=== PATIENT | female | born 2000 | race Caucasian/White ===

== ENCOUNTER 2021-03-29 13:56 | Emergency (ER) | payer SELFPAY ==
--- NOTE | 2021-03-29 14:37 | ER ---
Nurse's Notes [facility] Name: Anastasiia Salcedo Age: 20 yrs Sex: Female : 2000 Arrival Date: 03/29/2021 Time: 13:59 Bed 11 Private MD: Diagnosis: Acute tonsillitis, unspecified Presentation: 03/29 14:18 Chief complaint: Patient states: Two days ago pt state sore throat and 'felt like vg1 throat was swollen'; States 'it hurts to swallow'. Pt throat appears to be reddened. Denies cough, NVD. Coronavirus screen: Vaccine status: Patient reports being unvaccinated. Ebola Screen: Patient negative for fever greater than or equal to 101.5 degrees Fahrenheit, and additional compatible Ebola Virus Disease symptoms. Initial Sepsis Screen: Does the patient meet any 2 criteria? No. Patient's initial sepsis screen is negative. Does the patient have a suspected source of infection? No. Patient's initial sepsis screen is negative. Risk Assessment: Do you want to hurt yourself or someone else? Patient reports no desire to harm self or others. Onset of symptoms was March 27, 2021. 14:18 Method Of Arrival: Ambulatory vg1 14:18 Acuity: MARNI 4 vg1 Triage Assessment: 14:21 General: Appears in no apparent distress. uncomfortable, Behavior is calm, cooperative. vg1 Pain: Complains of pain in throat Pain currently is 7 out of 10 on a pain scale. Pain began 2-3 days ago. EENT: Throat is reddened has patchy exudate has enlarged tonsils with gag reflex present. 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 - Social history:: Smoking status: Patient denies any tobacco usage or history of. Patient/guardian denies using alcohol, street drugs, The patient lives with family. - Family history:: not pertinent. Screenin:25 Abuse screen: Denies threats or abuse. Denies injuries from another. Nutritional jl7 screening: No deficits noted. Tuberculosis screening: No symptoms or risk factors identified. Fall Risk None identified. Vital Signs: 14:18 BP 117 / 89; Pulse 122; Resp 16; Temp 98.5; Pulse Ox 100% ; Weight 104.33 kg; Height 5 vg1 ft. 5 in. (165.10 cm); Pain 7/10; 14:18 Body Mass Index 38.27 (104.33 kg, 165.10 cm) vg1 ED Course: 13:59 Patient arrived in ED. ds1 14:21 Triage completed. vg1 14:24 Arm band placed on. vg1 14:25 Patient has correct armband on for positive identification. Bed in low position. Call jl7 light in reach. Side rails up X 1. 14:28 Strep swab sent to lab. vg1 14:29 Silvio Milner MD is Attending Physician. ma2 15:03 Sonja Rodriguez RN is Primary Nurse. jl7 15:03 No provider procedures requiring assistance completed. Patient did not have IV access jl7 during this emergency room visit. Administered Medications: No medications were administered Outcome: 14:36 Discharge ordered by . ma2 15:03 Discharged to home ambulatory. jl7 15:03 Condition: stable 15:03 Discharge instructions given to patient, Instructed on discharge instructions, follow up and referral plans. medication usage, Demonstrated understanding of instructions, follow-up care, medications, Prescriptions given X 2. 15:03 Patient left the ED. jl7 Signatures: Margarita Overton ds1 Sonja Rodriguez, CRISSY WOODWARD jl7 Silvio Milner MD MD ma2 Garcia, Victoria, RN RN vg1
--- NOTE | 2021-03-29 14:37 | EDPHYS ---
Physician Documentation [facility] Name: Anastasiia Salcedo Age: 20 yrs Sex: Female : 2000 Arrival Date: 03/29/2021 Time: 13:59 Bed 11 Private MD: ED Physician Silvio Milner HPI: 03/29 14:35 This 20 yrs old Female presents to ER via Ambulatory with complaints of sore ma2 throat. 14:35 Onset: The symptoms/episode began/occurred gradually, 1 day(s) ago. Severity of ma2 symptoms: At their worst the symptoms were mild, in the emergency department the symptoms are unchanged. Associated signs and symptoms: Pertinent negatives chills, dysphagia, fever, headache. The patient has not experienced similar symptoms in the past. 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 - Social history:: Smoking status: Patient denies any tobacco usage or history of. Patient/guardian denies using alcohol, street drugs, The patient lives with family. - Family history:: not pertinent. ROS: 14:35 Constitutional: Negative for fever, chills, and weight loss. ma2 14:35 All other systems are negative. Exam: 14:35 Constitutional: This is a well developed, well nourished patient who is awake, alert, ma2 and in no acute distress. Head/Face: Normocephalic, atraumatic. Eyes: Pupils equal round and reactive to light, extra-ocular motions intact. Lids and lashes normal. Conjunctiva and sclera are non-icteric and not injected. Cornea within normal limits. Periorbital areas with no swelling, redness, or edema. ENT: red oropharynx, mild tonsellitis, no airway swelling Nares patent. No nasal discharge, no septal abnormalities noted. Tympanic membranes are normal and external auditory canals are clear. Oropharynx with no redness, swelling, or masses, exudates, or evidence of obstruction, uvula midline. Mucous membranes moist. Neck: Trachea midline, no thyromegaly or masses palpated, and no cervical lymphadenopathy. Supple, full range of motion without nuchal rigidity, or vertebral point tenderness. No Meningismus. Chest/axilla: Normal chest wall appearance and motion. Nontender with no deformity. No lesions are appreciated. Cardiovascular: Regular rate and rhythm with a normal S1 and S2. No gallops, murmurs, or rubs. Normal PMI, no JVD. No pulse deficits. Respiratory: Lungs have equal breath sounds bilaterally, clear to auscultation and percussion. No rales, rhonchi or wheezes noted. No increased work of breathing, no retractions or nasal flaring. Abdomen/GI: Soft, non-tender, with normal bowel sounds. No distension or tympany. No guarding or rebound. No evidence of tenderness throughout. MS/ Extremity: Pulses equal, no cyanosis. Neurovascular intact. Full, normal range of motion. Neuro: Awake and alert, GCS 15, oriented to person, place, time, and situation. Cranial nerves II-XII grossly intact. Motor strength 5/5 in all extremities. Sensory grossly intact. Cerebellar exam normal. Normal gait. Vital Signs: 14:18 BP 117 / 89; Pulse 122; Resp 16; Temp 98.5; Pulse Ox 100% ; Weight 104.33 kg; Height 5 vg1 ft. 5 in. (165.10 cm); Pain 7/10; 14:18 Body Mass Index 38.27 (104.33 kg, 165.10 cm) vg1 MDM: 14:29 Patient medically screened. ma2 14:35 Differential diagnosis: gastroesophageal reflux disease, tonsillitis, upper respiratory ma2 infection, viral syndrome. Data reviewed: vital signs, nurses notes. Counseling: I had a detailed discussion with the patient and/or guardian regarding: the historical points, exam findings, and any diagnostic results supporting the discharge/admit diagnosis, the presence of at least one elevated blood pressure reading (>120/80) during this emergency department visit, the need for outpatient follow up. Response to treatment: the patient's symptoms have markedly improved after treatment. 03/29 14:24 Order name: Strep vg1 03/29 14:25 Order name: Group A Streptococcus Rapid Sc EDMS 03/29 15:02 Order name: Throat Culture EDMS Administered Medications: No medications were administered Disposition Summary: 03/29/21 14:36 Discharge Ordered Location: Home ma2 Condition: Stable ma2 Diagnosis - Acute tonsillitis, unspecified ma2 Followup: ma2 - With: Private Physician - When: Tomorrow - Reason: Continuance of care Discharge Instructions: - Form - Return To Work dh3 - and Returning to Work 3 - Discharge Summary Sheet ma2 - Tonsillitis ma2 Forms: - Medication Reconciliation Form oh2 - Thank You Letter ma2 - Antibiotic Education ma2 - Prescription Opioid Use ma2 - Work release form 3 Prescriptions: - Augmentin 875-125 mg Oral Tablet - take 1 tablet by ORAL route every 12 hours for 10 days; 20 tablet; Refills: 0, ma2 Product Selection Permitted - Diclofenac Sodium 75 mg Oral Tablet Sustained Release - take 1 tablet by ORAL route 2 times per day; 30 tablet; Refills: 0, Product ma2 Selection Permitted Signatures: Dispatcher [employer] EDMS Silvio Milner MD MD ma2 Mira Winchester RN RN vg1
[2021-03-29 15:18] VITALS: BP 117/89; TEMP 98.5; O2SAT 100
== END 2021-03-29 15:03 | disposition home or self-care (01) ==
LOC: ER 13:56
DX: J03.90 Acute tonsillitis, unspecified (principal)
CPT/HCPCS: 87070; 87081; 99283